=== PATIENT | female | born 1985 | race Two or more races ===

== ENCOUNTER 2020-04-17 08:00 | Outpatient (CLI) | payer OTHER | END 2020-04-17 15:00 | disposition home or self-care (01) | LOC: PPH VACUNA 08:00 | DX: Z23 Encounter for immunization (principal) ==

== ENCOUNTER 2020-07-17 12:22 | Outpatient (CLI) | payer OTHER | END 2020-07-17 15:00 | disposition home or self-care (01) | LOC: PPH VACUNA 12:22 | DX: Z23 Encounter for immunization (principal) ==

== ENCOUNTER 2020-08-30 09:51 | Outpatient (CLI) | payer OTHER | END 2020-08-30 09:57 | disposition home or self-care (01) | LOC: SONOGRAMA 09:51 | PROVIDERS: ATTEND Pathology Anatomic Pathology & Clinical Pathology | DX: E04.1 Nontoxic single thyroid nodule (principal) ==